=== PATIENT | female | born 1990 | race African-American/Black ===

== ENCOUNTER 2024-10-01 13:17 | Inpatient (IN) | payer OTHER ==
[2024-10-01 14:05] VITALS: BMI 25.4
[2024-10-01] MEDS ORDERED: ACETAMINOPHEN 325 MG TABLET (FP) PO PRN (14:05)
[2024-10-01] MEDS ORDERED: POLYETHYLENE GLYCOL (HEALTHYLAX) 3350 17 GM PACKET PO PRN (14:05)
[2024-10-01] MEDS ORDERED: IBUPROFEN 400 MG TABLET (FP) PO PRN (14:05)
[2024-10-01] MEDS ORDERED: LOPERAMIDE HCL 2 MG CAPSULE PO PRN (14:05)
[2024-10-01] MEDS ORDERED: BISMUTH SUBSALICYLATE 524 MG/30 ML PO PRN (14:05)
[2024-10-01] MEDS ORDERED: DICYCLOMINE HCL 10 MG CAPSULE PO PRN (14:05)
[2024-10-01] MEDS ORDERED: BENZOCAINE/MENTHOL (CHLORASEPTIC ) LOZENGE MM PRN (14:05)
[2024-10-01] MEDS ORDERED: guaiFENesin 600 MG TABLET.ER (FP) PO PRN (14:05)
[2024-10-01] MEDS ORDERED: BENZONATATE 200 MG CAPSULE PO PRN (14:05)
[2024-10-01] MEDS ORDERED: IBUPROFEN 600 MG TABLET (FP) PO PRN (14:05)
[2024-10-01] MEDS ORDERED: chlordiazePOXIDE HCL 25 MG CAPSULE PO PRN (14:05)
[2024-10-01] MEDS ORDERED: MAGNESIUM HYDROX 2400MG/30ML ORAL SUSPENSION 30 ML CUP PO PRN (14:05)
[2024-10-01] MEDS ORDERED: NALOXONE (NARCAN) HCL 4 MG/0.1 ML SPRAY NS PRN (14:05)
[2024-10-01] MEDS ORDERED: ONDANSETRON *ODT* 4 MG TABLET ONE (14:21)
[2024-10-01] MEDS ORDERED: chlordiazePOXIDE HCL 25 MG CAPSULE ONE ×2 (14:21→16:38)
[2024-10-01] MEDS: ONDANSETRON *ODT* 4 MG TABLET SL PRN (14:22)
[2024-10-01] MEDS: NICOTINE 14 MG/24 HOURS TOPICAL PATCH TD SCH (14:24)
[2024-10-01] MEDS: PRENATAL VITAMINS W/ FOLIC ACID TABLET (FP) PO SCH (14:25)
[2024-10-01] MEDS: chlordiazePOXIDE HCL 25 MG CAPSULE PO ONE (15:08)
[2024-10-01] MEDS: chlordiazePOXIDE HCL 25 MG CAPSULE PO SCH (16:42)
[2024-10-01] MEDS: METHOCARBAMOL 500 MG TABLET PO PRN (20:57)
[2024-10-01] MEDS: hydrOXYzine PAMOATE 25 MG CAPSULE (FP) PO PRN (20:57)
[2024-10-01] MEDS: THIAMINE 100 MG TABLET PO SCH (22:30)
[2024-10-01] MEDS: MELATONIN 5 MG TABLETS PO SCH (22:30)
[2024-10-02] MEDS: MAG HYDROX/AL HYDROX/SIMETH 30 ML UNIT-DOSE CUP PO PRN (05:32)
[2024-10-02 12:57] LABS: HEMATOCRIT 27.3 % (34.1-44.9); MEAN CELL VOLUME 87.5 fl (79.4-94.8); MEAN PLT VOLUME 9.7 fl (9.4-12.3); PLATELET COUNT 167 x10^3/uL (182-369); RDW 13.6 % (12.1-16.8)
[2024-10-02 13:00] LABS: CHLORIDE 97 mmol/L (98-107); SODIUM 137 mmol/L (136-145)
[2024-10-02 13:03] LABS: CALCIUM 8.4 mg/dL (8.5-10.1)
[2024-10-02 13:04] LABS: ALBUMIN 3.2 g/dl (3.4-5.0); BLOOD UREA NITROGEN 9.6 mg/dL (7-18); CO2 33 mmol/L (21-32); GLUCOSE,RANDOM 100 mg/dL (74-106)
[2024-10-02 13:07] LABS: CREATININE 0.6 mg/dL (0.55-1.3); SGOT/AST 38 U/L (15-37); SGPT/ALT 15 U/L (13-61)
[2024-10-02 13:08] LABS: BILIRUBIN,TOTAL 1.3 mg/dL (0.2-1); TOT PROT 6.2 g/dl (6.4-8.2)
[2024-10-02 13:09] LABS: ALK PHOS 98 U/L (45-117)
[2024-10-02 13:36] LABS: ANION GAP 7 mmol/L (4-13); POTASSIUM 2.7 mmol/L (3.5-5.1)
[2024-10-02] MEDS: POTASSIUM CHLORIDE ORAL LIQUID 20 MEQ/15 ML PO ONE ×2 (15:12→17:32)
[2024-10-02] MEDS: LACTULOSE 20 GM/30 ML UDC (FOR ORAL USE ONLY) PO SCH (15:30)
[2024-10-02] MEDS: traZODone HCL 100 MG TABLET (FP) PO SCH (22:07)
[2024-10-03] MEDS: chlordiazePOXIDE HCL 25 MG CAPSULE PO SCH (05:48)
[2024-10-03] MEDS: ESCITALOPRAM OXALATE 20 MG TABLET PO SCH (10:14)
[2024-10-03] MEDS: ARIPiprazole 5 MG TABLET PO SCH (10:14)
[2024-10-03 12:10] LABS: POTASSIUM 3.4 mmol/L (3.5-5.1)
[2024-10-03 12:12] LABS: BLOOD UREA NITROGEN 10.2 mg/dL (7-18); CALCIUM 8.7 mg/dL (8.5-10.1)
[2024-10-03 12:15] LABS: CREATININE 0.6 mg/dL (0.55-1.3)
[2024-10-03] MEDS: POTASSIUM CHLORIDE ORAL LIQUID 20 MEQ/15 ML PO ONE (15:20)
[2024-10-04] MEDS ORDERED: chlordiazePOXIDE HCL 10 MG CAPSULE PO PRN
[2024-10-04] MEDS: chlordiazePOXIDE HCL 10 MG CAPSULE PO SCH (05:40)
[2024-10-04 13:35] LABS: POTASSIUM 3.8 mmol/L (3.5-5.1)
[2024-10-04 13:41] LABS: CREATININE 0.6 mg/dL (0.55-1.3)
[2024-10-04 21:17] VITALS: RESP 16
[2024-10-05] MEDS: chlordiazePOXIDE HCL 10 MG CAPSULE PO SCH (05:50)
[2024-10-05] MEDS: MINERAL OIL/PET HY-PHL TOPICAL OINTMENT 454 GM JAR TP SCH (11:49)
[2024-10-05] MEDS: TRIAMCINOLONE ACET 0.1% OINT 15 GM TUBE TP SCH (11:49)
[2024-10-06] MEDS: chlordiazePOXIDE HCL 10 MG CAPSULE PO ONE (06:04)
[2024-10-06 09:28] VITALS: BP 116/71; PULSE 75; TEMP 97.7
== END 2024-10-06 12:14 | disposition home or self-care (01) | DRG 775 ==
LOC: YASAS 13:17 → Y3N 16:28
PROVIDERS: ADMIT Allergy & Immunology; ATTEND Allergy & Immunology
PROC: HZ2ZZZZ Detoxification Services for Substance Abuse Treatment (ICD-10-PCS; principal; 2024-10-01)
DX: F10.230 Alcohol dependence with withdrawal, uncomplicated (principal); F17.290 Nicotine dependence, other tobacco product, uncomplicated; F10.24 Alcohol dependence with alcohol-induced mood disorder; F41.9 Anxiety disorder, unspecified; F32.9 Major depressive disorder, single episode, unspecified; F90.9 Attention-deficit hyperactivity disorder, unspecified type; E87.6 Hypokalemia; R79.89 Other specified abnormal findings of blood chemistry; Z85.41 Personal history of malignant neoplasm of cervix uteri
CPT/HCPCS: 36415; 80048; 80053; 80305; 80307; 81025; 82140; 85027; 86780; 93005; 93010; Q0162